=== PATIENT | female | born 1960 | race African-American/Black ===

== ENCOUNTER 2020-09-08 10:27 | Inpatient (IN) | payer OTHER, MEDICAID, SELFPAY ==
[~2020-09-08] VITALS: Ht 160 cm; Wt 36.3 kg
[2020-09-08 10:30] VITALS: BP 110/41
--- NOTE | 2020-09-08 10:40 | NUR ---
PATIENT AMBULATED TO ER BED 11
--- NOTE | 2020-09-08 10:47 | NUR ---
60/F non-ambulatory pt bib sister c/o pressure ulcer at coccyx x3 weeks. Pt's wound dressing was changed this morning at home by wound care nurse. Dressing c/d/i. Pt non-ambulatory since due to unspecified condition (sister does not remember name). Pt placed on bedside monitor, VSS. PMH:DM, HTN,HLD
[2020-09-08] MEDS ORDERED: NACL 0.9% 500 ML IV ONE ×2 (11:00→20:00)
[2020-09-08] MEDS ORDERED: VANCOMYCIN 1,000 MG VIAL ONE (11:34)
--- NOTE | 2020-09-08 11:34 | NUR ---
Unable to draw blood from IV site and health insurance specialist unable to obtain all lab ordered. operations accountant notified and will try.
[2020-09-08] MEDS ORDERED: VANCOMYCIN 1,000 MG in DEXTROSE 5% 250 ML IV ONE (11:35)
[2020-09-08] MEDS ORDERED: METF500T PO (11:40)
--- NOTE | 2020-09-08 11:45 | NUR ---
CATCHER HELPER AT BEDSIDE
[2020-09-08 11:56] LABS: EOSINOPHILS % (AUTO) 0.1 % (0.0-4.0); HEMATOCRIT 40.1 % (36-48); HEMOGLOBIN 12.9 g/dL (12.0-16.0); LYMPHOCYTES # (AUTO) 0.9 K/uL (2.5-16.5); LYMPHOCYTES % (AUTO) 8.7 % (20.5-51.1); MEAN CORPUSCULAR HEMOGLOBIN 29 pg (27-31); MEAN CORPUSCULAR HGB CONC 32 g/dL (33-37); MEAN CORPUSCULAR VOLUME 88.6 fL (80-94); MONOCYTES # (AUTO) 0.8 K/uL (0.8-1.0); MONOCYTES % (AUTO) 7.4 % (1.7-9.3); NEUTROPHILS % (AUTO) 83.8 % (42.2-75.2); PLATELET COUNT (AUTO) 254 K/uL (140-450); RED BLOOD CELL COUNT(AUTO) 4.52 MIL/uL (4.20-5.40); RED CELL DISTRIBUTION WIDTH 15.2 % (11.6-13.7); WHITE BLOOD COUNT (AUTO) 10.7 K/uL (4.8-10.8)
[2020-09-08 12:06] LABS: PROTHROMBIN TIME 10.2 secs (10.8-13.4)
--- NOTE | 2020-09-08 12:08 | NUR ---
URINE CATH SAMPLE AND COVID PALOMO SAMPLE DROPPED OFF AT LAB
[2020-09-08 12:09] LABS: ALBUMIN 2.2 g/dL (3.4-5.0); ANION GAP 11.8 (8-16); CARBON DIOXIDE 29.3 mmol/L (21-32); CREATININE 0.7 mg/dL (0.6-1.3); POTASSIUM 3.1 mmol/L (3.5-5.1); TOTAL BILIRUBIN 0.4 mg/dL (0.0-1.0)
--- NOTE | 2020-09-08 12:10 | NUR ---
NOTIFIED XRAY DEPT TO COME TAKE XRAY
--- NOTE | 2020-09-08 12:11 | NUR ---
DRY PRIMER POWDER BLENDER AT BEDSIDE
[2020-09-08 12:12] LABS: BILIRUBIN,URINE 1+ (NEGATIVE); COLOR,URINE YELLOW (YELLOW); LEUKOCYTE ESTERASE ,URINE 2+ (NEGATIVE); NITRITE, URINE NEGATIVE (NEGATIVE); UGLUCOSE NEGATIVE (NEGATIVE)
[2020-09-08 12:18] LABS: APPEARANCE,URINE HAZY (CLEAR)
[2020-09-08 12:19] LABS: WBC,URINE 20-60 /HPF (0-5)
[2020-09-08 12:20] LABS: YEAST,URINE Few /HPF (None Seen)
[2020-09-08 12:22] LABS: BLOOD, URINE 1+ (NEGATIVE)
[2020-09-08] MEDS ORDERED: LEVOFLOXACIN 500 MG/D5W PREMIX 100 ML IV ONE (12:30)
[2020-09-08] MEDS ORDERED: POTASSIUM CHLORIDE 20% 40 MEQ/15 ML UDC PO ONE (12:30)
--- NOTE | 2020-09-08 12:42 | NUR ---
HOB ELEVATED, PT WAS ABLE TO SWALLOW POTASSIUM LIQUID GIVEN PO BY SYRINGE WITHOUT DIFFICULTY/DYSPHAGIA.
--- NOTE | 2020-09-08 13:19 | NUR ---
PLEASE CONTACT SISTER [phone] FOR UPDATES.
--- NOTE | 2020-09-08 13:20 | NUR ---
SISTER ARIANE WEINBERG.
--- NOTE | 2020-09-08 14:00 | NUR ---
PT REPOSITIONED IN BED, PILLOW PLACED UNDER LEFT SIDE.
[2020-09-08] MEDS ORDERED: NACL 0.9% 1,000 ML IV SCH (14:30)
[2020-09-08] MEDS ORDERED: ONDANSETRON 4 MG/2 ML VIAL IM/IVP PRN (14:30)
[2020-09-08] MEDS ORDERED: POTASSIUM CHLORIDE 10 MEQ TABER PO PRN (14:30)
[2020-09-08] MEDS ORDERED: ACETAMINOPHEN 325 MG TAB PO PRN (14:30)
[2020-09-08] MEDS ORDERED: DOCUSATE SODIUM 100 MG GELCAP PO PRN (14:30)
[2020-09-08] MEDS ORDERED: PIPERACILLIN/TAZOBACTAM 3.375 GM in DEXTROSE 5% 50 ML IV SCH ×2 (14:43→17:20)
[2020-09-08 15:15] LABS: FREE T4 (FREE THYROXINE) 1.2 ng/dL (0.76-1.46); MAGNESIUM 2.4 mg/dL (1.8-2.4); PHOSPHORUS 2.6 mg/dL (2.5-4.9); THYROID STIMULATING HORMONE 1.92 uIU/mL (0.34-3.74)
[2020-09-08 15:17] LABS: CHOL/HDL RATIO 4.5 (1-4.5)
--- NOTE | 2020-09-08 15:30 | NUR ---
TYLENOL 650 MG ADMINISTER PRN TEMP 101.0
[2020-09-08 15:40] VITALS: BP 103/79
--- NOTE | 2020-09-08 15:40 | NUR ---
RECEIVED REPORT FROM ER NURSE MAYURI-SHANNON. PT RESTING IN BED, AOX2, ON ROOM AIR WITH RIGHT FA #[phone]. DISCUSSED PLAN OF CARE AND VERBALIZED UNDERSTANDING. INCONTINENT, WITH LEFT HIP CLOSED WOUND AND LEFT BUTTOCK OPEN WOUND. ORIENTED PT TO BEDROOM, CALL LIGHT. MRSA NARES COLLECTED. PT TOLERATED WELL. FALL PRECAUTIONS IN PLACE. CALL LIGHT WITHIN REACH. NO S/S OF RESPIRATORY DISTRESS OR DISCOMFORT NOTED AT THIS TIME. WILL CONTINUE TO MONITOR.
--- NOTE | 2020-09-08 15:40 | NUR ---
Patient will be admitted to care of DR. WARREN. Admited to MED SURG. Will go to room 126B. Belongings list completed. Report to LUISA ORTEGA.
[2020-09-08 16:00] VITALS: BP 108/63
--- NOTE | 2020-09-08 17:35 | NUR ---
SCHEDULED MEDICATION ZOSYN GIVEN AND TOLERATED WELL. CALL LIGHT WITHIN REACH. NO S/S OF RESPIRATORY DISTRESS OR DISCOMFORT NOTED AT THIS TIME. WILL CONTINUE TO MONITOR.
--- NOTE | 2020-09-08 17:51 | NUR ---
CRITICAL LAB VALUE LACTIC ACID 3.0- DR. WARREN CONTACTED AND AWARE.
--- NOTE | 2020-09-08 18:00 | NUR ---
DR. WARREN ORDERED 500ML BOLUS AND CONTINUE 60ML/HR NS IVF.
--- NOTE | 2020-09-08 19:00 | NUR ---
NS 500ML BOLUS GIVEN AND NS NOW RUNNING AT 60ML/HR. PT TOLERATED WELL. ENDORSED PT CARE TO SWEATER OPERATOR NURSE JANKI-SHANNON FOR CONTINUITY OF CARE. PT IN STABLE CONDITION AT THIS TIME.
[2020-09-08] MEDS ORDERED: DEXTROSE 50% 50 ML SYR IVP PRN (20:10)
[2020-09-08] MEDS: PIPERACILLIN/TAZOBACTAM 3.375 GM in DEXTROSE 5% 50 ML IV SCH (20:57)
[2020-09-08] MEDS: NACL 0.9% 1,000 ML IV SCH (21:00)
[2020-09-08] MEDS: INSULIN LISPRO SLIDING SCALE 100 UNITS/ML VIAL SUBQ PRN (21:00)
--- NOTE | 2020-09-08 21:00 | NUR ---
BS READING WAS TAKEN AND BS WAS 202. FOUR UNITS OF INSULIN HUMALOG WAS GIVEN PER SLIDING SCALE. PT WAS GIVEN PT INFORMATION REGARDING MEDICATION AND SIGNS AND SYMPTOMS OF HYPOGLYCEMIA. PT VERBALIZED UNDERSTANDING.
[2020-09-08] MEDS: BLOOD GLUCOSE MONITORING 1 DEV DEV FS SCH (21:03)
--- NOTE | 2020-09-08 21:30 | NUR ---
PT WAS CHANGED AND REPOSITIONED PER PROTOCOL. NO DISTRESS NOTED DURING CHANGING, SHE HANDLED THE PROCEDURE WELL. PT IS STABLE AT THIS TIME. DRY CHUCKS ARE IN PLACE. DRESSINGS ARE DRY AND INTACT.
--- NOTE | 2020-09-08 23:00 | NUR ---
PT WAS REPOSITIONED PER PROTOCOL. WEDGE WAS PLACED UNDERNEATH RIGHT SIDE TO OFFSET THE PRESSURE ON THE BACK. WOUND DRESSING IS DRY AND INTACT. CHUCKS ARE DRY AND IN PLACE. PT IS STABLE.
[2020-09-09] VITALS: BP 122/77
--- NOTE | 2020-09-09 01:00 | NUR ---
PT'S WOUND'S WERE ASSESSED. MODERATE DRAINAGE WAS COMING FROM LEFT BUTTOCKS WOUND. NO DRAINAGE CAME FROM LEFT HIP. FOUL ODOR FROM BOTH WOUNDS. CLEANSED WITH NS AND PATTED DRY. NEW DRESSING WAS APPLIED. PT WAS REPOSITIONED.
[2020-09-09] MEDS: NACL 0.9% 1,000 ML IV SCH (01:41)
--- NOTE | 2020-09-09 03:00 | NUR ---
IV IS INFUSING AND PATENT. PT IS EASILY AWOKEN BY NOISE. PT HAS GOTTEN SOME SLEEP ON AND OFF THROUGH THE NIGHT. PT HAS BEEN NPO PER ORDER CHANGE. SOILED LINENS WERE CHANGED AND PT WAS REPOSITIONED. BED IS IN THE LOWEST POSITION AND CALL LIGHT IS WITHIN REACH.
[2020-09-09] MEDS: PIPERACILLIN/TAZOBACTAM 3.375 GM in DEXTROSE 5% 50 ML IV SCH ×3 (04:51→22:00)
--- NOTE | 2020-09-09 05:00 | NUR ---
PT IS REPOSITIONED TO OFFSET THE PRESSURE ON THE BACK AND THE WOUNDS. DRESSING FOR WOUNDS ARE DRY AND INTACT. PT'S LINENS ARE DRY. LOTION WAS APPLIED TO DRY FEET. PILLOW WAS PLACED IN BETWEEN KNEES AND ON ONE SIDE OF BACK.
[2020-09-09 05:31] LABS: BASOPHILS % (AUTO) 0.2 % (0.0-2.0); EOSINOPHILS % (AUTO) 0.2 % (0.0-4.0); HEMATOCRIT 30.6 % (36-48); HEMOGLOBIN 10.1 g/dL (12.0-16.0); LYMPHOCYTES # (AUTO) 1.1 K/uL (2.5-16.5); LYMPHOCYTES % (AUTO) 11.3 % (20.5-51.1); MEAN CORPUSCULAR HEMOGLOBIN 29 pg (27-31); MEAN CORPUSCULAR HGB CONC 33 g/dL (33-37); MEAN CORPUSCULAR VOLUME 86.6 fL (80-94); MONOCYTES # (AUTO) 0.8 K/uL (0.8-1.0); NEUTROPHILS % (AUTO) 80.3 % (42.2-75.2); PLATELET COUNT (AUTO) 246 K/uL (140-450); RED BLOOD CELL COUNT(AUTO) 3.53 MIL/uL (4.20-5.40); RED CELL DISTRIBUTION WIDTH 14.6 % (11.6-13.7); WHITE BLOOD COUNT (AUTO) 9.9 K/uL (4.8-10.8)
[2020-09-09 05:40] LABS: CARBON DIOXIDE 25.3 mmol/L (21-32); CREATININE 0.5 mg/dL (0.6-1.3); POTASSIUM 3.3 mmol/L (3.5-5.1)
[2020-09-09 05:47] LABS: MAGNESIUM 1.9 mg/dL (1.8-2.4); PHOSPHORUS 1.5 mg/dL (2.5-4.9)
--- NOTE | 2020-09-09 06:01 | NUR ---
BS READING WAS TAKEN AND BS IS 114. PT DOES NOT NEED INSULIN AT THIS TIME PER SLIDING SCALE. PT IS STABLE AND SLEEPING COMFORTABLY IN SEMI FOWLERS POSITION. NEEDS HAVE BEEN MET. WHEELCHAIR IS AT BEDSIDE.
[2020-09-09] MEDS: BLOOD GLUCOSE MONITORING 1 DEV DEV FS SCH ×4 (06:35→21:00)
--- NOTE | 2020-09-09 07:25 | NUR ---
ENDORSED PT TO DAY SHIFT NURSE FOR CONTINUITY OF CARE. PT IS AWAKE AND ALERT. PT IS STABLE AT THIS TIME. PLAN OF CARE DISCUSSED. WHEELCHAIR IS AT BEDSIDE.
--- NOTE | 2020-09-09 07:30 | NUR ---
RECEIVED PT FROM REGISTERED NURSE MIDWIFE NURSE, PT IS AWAKE AND LYING ON THE BED WITH SIDE RAILS UP AND CALL LIGHT WITHIN REACH, FALL AND SAFETY PRECAUTION WERE IN PLACE, IV LINE NOTED ON THE RFA G. 22 WITH NS INFUSING AT 60ML/GR, PT HAS A RT BUTTOCK OPEN WOUND REINFORCED BY DRESSING, PT IS ON ROOM AIR AND NO SIGN OF DISTRESS NOTED. WILL MONITOR PT.
--- NOTE | 2020-09-09 07:31 | NUR ---
PT WAS PLACED NPO PENDING SURGERY CONSULT WITH DR. MALAGON.
[2020-09-09 08:00] VITALS: BP 117/68
[2020-09-09 08:09] LABS: T4 (THYROXINE) 6.6 ug/dL (4.5-12.0)
--- NOTE | 2020-09-09 08:39 | NUR ---
PATIENT HAS BEEN SCREENED AND CATEGORIZED HIGH NUTRITION RISK. PATIENT WILL BE SEEN WITHIN 1-2 DAYS OF ADMISSION. 09/09/20-09/10/[address]
--- NOTE | 2020-09-09 08:47 | NUR ---
CALLED PT'S SISTER, SIXTO KAISER AT [phone] AND OBTAINED A TELEPHONE CONSENT FRO A NM TRI PHASE BONE SCAN FOR PT.
[2020-09-09] MEDS ORDERED: metFORMIN 500 MG TAB PO SCH (09:00)
--- NOTE | 2020-09-09 09:00 | NUR ---
PT WAS OFF THE UNIT NOW FOR THE SECOND PHASE IOF THE NM TRI PHASE BONE SCAN.
--- NOTE | 2020-09-09 09:25 | NUR ---
SOCIAL WORK NOTE: Patient's Orientation Unable To Assess Information Provided By ZARI MENDOZA - SISTER Comments SW WAS UNABLE TO MEET PATIENT AT BEDSIDE. SW ATTEMPTED TO CONTACT ARIANE WEINBERG, BUT MAILBOX WAS FULL AND WAS UNABLE TO LEAVE A MESSAGE. SW CONTACTED SHANNON ROBLES WHO PROVIDED SISTER ZARI MENDOZA'S CONTACT INFORMATION - [phone]. Infant And Toddler Teacher, Realtionship and Phone Number ARIANE ZAMORA [phone] ZARI ZAMORA [phone] Healthcare Power of Biomedical Engineering Aide No Does Patient Have a POLST No Identifying Problems No Social Work Triggers Is A Social Work Consult Needed No Mandate Report Filed No Explanation Of Identifying Problems PATIENT IS A 60-YEAR-OLD FEMALE ADMITTED FOR CELLULITIS AND WOULD CHECK. PATIENT HAS PMHX OF CEREBRAL PALSY. PATIENT'S SISTER REPORTED NO HISTORY OF SUBSTANCE ABUSE OR MENTAL HEALTH. Admitted From Home Pre-Admission Level Of Functioning Status Total Care Level Of Functioning Comment PER SISTER, PATIENT REQUIRES TOTAL ASSISTANCE WITH ADLS. Prior Resources/Services Used In Last 12 Months [facility] Prior Resources/Service Comments PATIENT RECEIVES 169 HOURS MONTHLY FROM [facility]. Prior DME Hospital Bed Wheelchair Dialysis Comments SISTER REPORTED NO DIALYSIS FOR PATIENT. Living Situation Lives With Family House Other Living Situation/Comment PATIENT LIVES WITH SISTERARIANE. Patient Had Caregiver Yes Name and Contact Number Of Designated Caregiver ARIANE WEINBERG - [phone] Home Support CG/Fam Able To Meet Need Financial Issues No Known Financial Issue Referral To The Financial Counselor Needed No Factors/Needs No D/C Needs Identified Explanation And Or Other Factors Affecting/Possible DC Needs ARIANE WEINBERG WILL PICK PATIENT UP AT DISCHARGE. Pt/Rep Participated In Discharge Plan Yes Patient/Family Agress With Discharge Plan Yes Discharge Plan Comments TENTATIVE DISCHARGE PLAN IS FOR PATIENT TO RETURN HOME. DC Plan Status Initiated Addendum: 09/14/20 at 1039 by Mario Malave STANLEY CONSULTED WITH ATTENDANT CHILD ACTIVITY. STANLEY FILED APS REPORT WITH [facility] FOR POSSIBLE NEGLECT BY ARIANE WEINBERG AND SHRUTHI KAISER. STANLEY SPOKE WITH ELISHA DAMIAN [phone]. APS REPORT REFERENCE #[id number]. STANLEY FAXED APS REPORT TO [phone]. Addendum: 09/16/20 at 1130 by Mario Malave STANLEY CONTACTED [facility] APS [phone] AND SPOKE TO TUNDE. STANLEY UPDATED APS REPORT AND INFORMED APS THAT PATIENT WILL BE DISCHARGED TO [facility]. REFERENCE #[id number]
--- NOTE | 2020-09-09 09:57 | NUR ---
PT WAS BACK TO ROOM NOW FROM NM TRI PHASE BONE SCAN.
--- NOTE | 2020-09-09 11:26 | NUR ---
DR. WHITFIELD MADE A TELEPHONE ORDER TO START PT WITH IVF D5NS AT 60ML/HR NOW.
[2020-09-09] MEDS: DEXT 5% /NACL 0.9% 1,000 ML IV SCH (11:38)
--- NOTE | 2020-09-09 11:45 | NUR ---
DISCHARGE PLANNING: RECEIVED A CALL FROM SOIL[facility] OF [facility] [phone], FAX NUMBER [phone] REQUESTING UPDATE ON THIS PATIENT. PROVIDED HER OF ALL INFORMATION NEEDED. SHE REQUESTED FOR CLINICALS TO BE FAXED TO THEM. I INQUIRED IF THE PATIENT IS REQUIRING SNF IF SHE PROVIDE US WITH THEIR CONTRACTED SNF AND TRANSPORT. SHE STATED THEY ARE CONTRACTED WITH [facility], [facility], [facility] AND [facility]. FOR TRANSPORT [facility] [phone] AND [facility] [phone]. I ALSO REQUESTED FOR THE AUTH. SHE PROVIDED ME WITH [id number]. WILL FOLLOW UP. Addendum: 09/09/20 at 1154 by Charline Hammer CM CHRISTOS WATER QUALITY TESTER: FAXED PATIENTS CLINICALS TO [facility] ATTENTION TO SOILA. Addendum: 09/10/20 at 1347 by Mario Malave STANLEY CONTACTED SISTER OF PATIENT, ZARI MENDOZA REGARDING DISCHARGE PLAN. ZARI STATED THAT SHE WAS POA FOR PATIENT. STANLEY REQUESTED DOCUMENTATION BE FAXED TO CASE MANAGEMENT. ZARI STATED THAT SHE AND HER FAMILY ARE DECLINING HOSPICE. ZARI STATED THAT SHE WILL MAKE ARRANGEMENTS REGARDING CARE FOR SISTER HERSELF. STANLEY WILL FOLLOW UP NEEDED. STANLEY INFORMED DR. WHITFIELD. Addendum: 09/10/20 at 1417 by Cornelia Malik CM LELE CM OF [facility] HEALTH PLAN [phone] UPDATED OF THE PATIENT'S CONDITION AND TENTATIVE PLAN TO DC TO SNF FOR IV ANTIBIOTICS FOR OSTEO PENDING ID'S RECOMMENDATIONS. I ALSO INQUIRED IF THE AUTH THAT SHE PROVIDED ME YESTERDAY, WILL COVER THE ENTIRE STAY. PER LELE CM STATED "YES, WILL COVER THE ENTIRE STAY." SHE PROVIDED ME WITH WEEKEND COVERAGE FOR [facility] [phone] AND FOR SUNDAY LACI [phone] AND FAX NUMBER FOR THE WEEKEND WILL BE [phone]. SHE ALSO MENTIONED THAT PATIENT'S PCP ORDERED HOSPICE FOR THIS PATIENT. STANLEY AYALA MADE AWARE. PER STANLEY AYALA HE SPOKE TO THE FAMILY AND THEY DECLINE HOSPICE. WILL FOLLOW UP. Addendum: 09/13/20 at 1135 by Erika Disla CM DC PLANNING: CALLED PT'S INSURANCE [facility] [phone] SPOKE WITH LELE CM NOTIFIED HER PT HAS A DC ORDER TO GO HOME WITH [facility] FOR IV ABX. PER SOILA PT WAS WITH [facility] AND [facility] IS CONTRACTED WITH THEM. CALLED [facility] SPOKE WITH THE INTAKE STATED IF FAMILY ARE NOT TEACHABLE SHE DOES NOT HAVE A NURSE FOR Q12 HR. CALLED PT'S SISTER SHRUTHI AT [phone] LEFT A MESSAGE. CALLED [facility] SPOKE WITH DENZEL FAXED ALL THE PAPERWORK , PER DENZEL WILL CALL BACK AFTER SHE REVIEWED AND SPEAK WITH THE FAMILY AND INSURANCE. CM TO FOLLOW. Addendum: 09/13/20 at 1439 by Erika Disla CM DC PLANNING: CALLED [facility] [phone] SPOKE WITH STEPHANIE VILLARREAL AND [facility] WILL PROVIDE MEDICATION DAPTOMYCIN 6-10MG /KG IV DAILY FOR 6 WEEKS AND REQUESTED THE FIRST DOSE TO BE GIVEN. PT IS READY TO BE DC ONCE PICC LINE IS INSERTED AND RECEIVED 1ST DOSE OF DAPTOMYCIN. CM TO FOLLOW Addendum: 09/13/20 at 1617 by Mario GUILLERMO STANLEY CONTACTED [facility] AND SPOKE TO DENZEL [phone]. STANLEY INFORMED DENZEL THAT PATIENT WILL STAY OVERNIGHT. [facility]ZEL STATED SHE WOULD FOLLOW UP WITH PATIENT TOMORROW. Addendum: 09/14/20 at 1112 by Cornelia Malik CM [facility] UPDATED OF THE PATIENT'S CONDITION AND DC PLAN TO SNF FOR IV ANTIBIOTICS. PER CM MIRACLE, SHE WILL FAX ME OVER MORE SNF LIST IF IN ANY CASE THE 4 MENTIONED PREVIOUSLY WILL NOT BE ABLE TO ACCEPT THE PATIENT. Addendum: 09/14/20 at 1114 by Charline Hammer CM DC WATER QUALITY TESTER: FAXED PATIENT CLINICALS TO CONTRACTED FACILITIES [facility], [facility], AND [facility]. Addendum: 09/14/20 at 1117 by Cornelia Malik CM CONTACTED PATIENT'S SISTER SHRUTHI AT [phone] TO DISCUSS DC PLAN TO SNF AND IS IN AGREEMENT. INFORMED HER THAT WE SENT THAT WE SENT THE INQUIRY TO [facility], [facility] AND [facility]. SHE STATED SHE PREFERS [facility] IF BED IS AVAILABLE. INFORMED HER THAT WE WILL UPDATE HER OF THE ACCEPTING FACILITY. Addendum: 09/14/20 at 1303 by Charline Hammer CM DC WATER QUALITY TESTER: RECEIVED ORDER TO DC PATIENT ON 09/17 TO SNF WITH IV ABX. FAXED ORDER TO [facility]. Addendum: 09/14/20 at 1305 by Charline Hammer CM DC WATER QUALITY TESTER: SPOKE TO TYLER AT [facility] SHE IS REVIEWING THE CLINICS AND WILL CONTACT ME BACK. SHE BELIEVES THEY WILL BE ABLE TO ACCEPT THIS PATIENT. WILL FOLLOW UP. Addendum: 09/15/20 at 1101 by Charline Hammer CM DC WATER QUALITY TESTER: RECEIVED A CALL FROM SKYLA AT [facility] THEY ARE ABLE TO ACCEPT THIS PATIENT IN ROOM 3A. SPOKE TO PATIENTS SISTER SIXTO REGARDING ACCEPTING SNF SHE IS OKAY WITH HER SISTER GOING TO [facility]. Addendum: 09/15/20 at 1104 by Charline Hammer CM CHRISTOS BERNAL: DR. WHITFIELD MADE AWARE OF ACCEPTING FACILITY. Addendum: 09/15/20 at 1120 by Cornelia Malik CM PER DR WHITFIELD, WILL DC PATIENT TOMORROW. Addendum: 09/15/20 at 1301 by Cornelia Malik CM [facility] UPDATED OF THE PATIENT'S CONDITION. I INFORMED HER WELL THAT WE HAVE AN ACCEPTING SNF WHICH IS [facility]. SHE STATED THAT SHE PROVIDED THEM WITH AUTH ALREADY. INFORMED HER THAT TENTATIVE DC PLAN TO SNF IS TOMORROW AND SOON WE GET THE ORDER WE'LL SEND IT OVER. Addendum: 09/16/20 at 0938 by Charline Hammer DC WATER QUALITY TESTER: PATIENT WILL DC TODAY TO [facility] ROOM [address]A UNDER DR[address] MAHARAJ. SPOKE TO PATIENTS SISTER ZARI TO NOTIFY HER THAT PATIENT WILL BE DISCHARGING TODAY. [place] [phone] [facility] [id number] Addendum: 09/16/20 at 0939 by Charline Hammer CM CHRISTOS BERNAL: ANNE MARIE CRUM AT [facility] THEY ARE ABLE TO COVER TRANSPORTATION FOR PATIENT. Addendum: 09/16/20 at 940 by Charline Hammer CM CHRISTOS BERNAL: CORRECTION PATIENT WILL NOW BE GOING TO ROOM 5-B Addendum: 09/16/20 at 1040 by Charline Hammer CM CHRISTOS BERNAL: CONTACTED [facility] TO SET UP [facility] [phone]. ETA IS 1:30PM-2:30 PM NOTIFIED RN Addendum: 09/16/20 at 1256 by Erika Disla CM DC PLANNING: RECEIVED A CALL FROM [facility] PLAN SPOKE WITH SOILA NOTIFIED HER PT IS GOING TO [facility] , EQUAL OPPORTUNITY SPECIALIST TIME BETWEEN 1:30 TO 2:30 WITH [employer].
--- NOTE | 2020-09-09 12:36 | NUR ---
PT WAS GIVEN IVPB ZOSYN NOW, NO SIGN OF DISTRESS NOTED AND WILL MONITOR PT.
--- NOTE | 2020-09-09 13:45 | NUR ---
09/09/20 RD INITIAL ASSESSMENT COMPLETED PLEASE REFER TO NUTRITION ASSESSMENT UNDER CARE ACTIVITY FOR ESTIMATED NUTRITIONAL NEEDS. 1. RECOMMEND SWALLOWING EVALUATION FOR APPROPRIATE FOOD TEXTURE AND LIQUID CONSISTENCY RECOMMENDATIONS 2. RECOMMEND VITAMIN C 500 MG BID AND ZINC 220 MG IF APPROPRIATE 3. RECOMMEND LUCRECIA BID AND ENSURE TID 4. PROVIDE ASSISTANCE WITH MEALS 5. RD TO FOLLOW-UP 2-3 DAYS, HIGH RISK ORI JACKSON, RD
--- NOTE | 2020-09-09 14:00 | NUR ---
WOUND ASSESSMENT WAS DONE, WOUND WAS CLEANED AND REINFORCED WITH DRESSING.
[2020-09-09] MEDS ORDERED: NACL 0.9% 1,000 ML IV SCH (14:30)
--- NOTE | 2020-09-09 15:49 | NUR ---
PT IS OFF THE UNIT FOR A THIRD PHASE OF THE TRI PHASE BONE SCAN.
[2020-09-09 16:00] VITALS: BP 134/79
--- NOTE | 2020-09-09 17:00 | NUR ---
PT IS BACK TO ROOM FROM NM TRI PHASE BONE SCAN, THIRD PHASE.
--- NOTE | 2020-09-09 17:20 | NUR ---
BLOOD GLUCOSE CHECK DONE AND IS 77, WILL MONITOR PT.
--- NOTE | 2020-09-09 18:15 | NUR ---
PT WAS TURNED AND REPOSITIONED.
--- NOTE | 2020-09-09 19:20 | NUR ---
ENDORSED PT TO SEASONAL PACKAGE HANDLER NURSEMAXINE FOR CONTINUITY OF CARE.
--- NOTE | 2020-09-09 19:20 | NUR ---
RECEIVED PT. AAOX 1 TO 2 - NID - O2 SAT WNL . IV SITE INTACT AND PATENT , LOW RENAY SCALE , W/DECUBITUS ULCERS ON R BUTT AND L HIP - SEEN BY DR. MALAGON WHILE AGO - FOR DEBRIBEMENT CHARLES . - BUT NO TIME YET . FALL RISK - BED ALARM ON . PLAN OF CARE DISCUSSED BUT LIMITED UNDERSTANDING DUE TO MENTAL CAPACITY - HX OF CEREBRAL PALSY . DENIES ANY PAIN . NPO . WILL CONT. TO MONITOR .
--- NOTE | 2020-09-09 20:00 | NUR ---
I TRIED TO GET TEL. CONSENT FOR DEBRIBEMENT FROM PT'S SISTER - BUT PER PT'S SISTER REQUEST SHE WANTS AN EXPLANATION FROM DR. MALAGON BEFORE TO GIVE THE TEL CONSENT - WILL INFORM DR. MALAGON.
--- NOTE | 2020-09-09 20:20 | NUR ---
SENT TEXT MESSAGE TO DR. MALAGON ABOUT PT'S SISTER REQUEST - NO RESPONSE FROM DR. MALAGON - I SENT DR. MALAGON THE PT'S NAME OF THE SISTER AND THE CONTACT NUMBERS - NO FINAL TIME YET WHEN THE PROCEDURE TO BE DONE .
--- NOTE | 2020-09-09 22:00 | NUR ---
NO COPMPLAIN MADE - WILL CONT. TO MONITOR
[2020-09-10] VITALS: BP 122/62
--- NOTE | 2020-09-10 | NUR ---
MADE ROUNDS , NO S/SX OF ACUTE DISTRESS NOTED . WILL CONT. TO MONITOR .
--- NOTE | 2020-09-10 04:00 | NUR ---
MADE ROUNDS , NO S/SX OF ACUTE DISTRESS NOTED . CALL LIGHT WITHIN REACH . FF UP FOR EKG.
[2020-09-10] MEDS: PIPERACILLIN/TAZOBACTAM 3.375 GM in DEXTROSE 5% 50 ML IV SCH ×3 (04:51→21:32)
[2020-09-10] MEDS: BLOOD GLUCOSE MONITORING 1 DEV DEV FS SCH ×4 (05:54→21:02)
--- NOTE | 2020-09-10 06:00 | NUR ---
MADE ROUNDS . NO S/SX OF ACUTE DISTRESS NOTED . DENIES PAION . WILL CONT. TO MONITOR .
[2020-09-10] MEDS: DEXT 5% /NACL 0.9% 1,000 ML IV SCH ×2 (06:24→21:32)
--- NOTE | 2020-09-10 07:20 | NUR ---
RECEIVED REPORT FROM MANUFACTURING ELECTRICIAN RN PT IS STABLE. LAYING IN BED.
--- NOTE | 2020-09-10 07:20 | NUR ---
ENDORSED TO AM SHIFT - PT - STABLE - GOT CONSENT FOR DEDRIBEMENT FROM SISTER ZARI - DR. MALAGON INFORMED .
[2020-09-10 08:00] VITALS: BP 103/58
--- NOTE | 2020-09-10 08:40 | NUR ---
PT IS AWAKE AND ORIENTED X 1/2 KNOW HER NAME AND THAT SHE IS IN HOSPITAL. PT BEDBOUND V/S: 97.8, 88, 16, 103/58, 100% RA. LUNG SOUNDS CLEAR, ABD IS FLAT SOFT AND NON-TENDER. ACTIVE BS X 4. SAFETY MEASURES IN PLACE. HAS IV ACCESS TO RIGHT FOREARM THAT IS INTACT AND PATENT. WOUND NURSE ASSESSING PT WILL CONTINUE WITH POC.
--- NOTE | 2020-09-10 09:16 | NUR ---
WOUND CARE EVALUATION NOTE: REASON FOR EVALUATION: LOW RENAY SCALE AND BUTTOCK WOUNDS SKIN ASSESSMENT DONE WITH THIS 60 Y/O MALE PT ADMITTED TO [facility] WITH INITIAL DX . BUTTOCK WOUND X3 WEEKS PAST MEDICAL HX INCLUDES CEREBRAL PALSY, DIABETES MELLITUS. ALL ABOVE INFORMATION OBTAINED FROM ADMISSION H&P. PT ADMITTED WITH MULTIPLE PRESSURE INJURIES. BMI 15.8, H/H 10.1/30.6, ALBUMIN 2.2. PT EYES OPEN, NON-VERBAL, MADE SOUNDS. SKIN IS COLD AND DRY, BLE HAIR NO GROWTH, NO EDEMA. DRY AND SCALY, DORSAL PEDAL PULSES PRESENT AND NORMAL. CAPILLARY REFILLED < 2 SEC. X 10 TOES. INCONTINENT OF BOWEL AND BLADDER. PLAN OF CARE DISCUSSED WITH PRIMARY RN. INTEGUMENTARY: -LIPS AND ORAL MEMBRANE ARE DRY AND INTACT -UPPER ARMS MULTIPLE ECCHYMOSIS/MULTIPLE PURPLE DISCOLORATION POSSIBLE FROM BLOOD DRAW -INCONTINENT ASSOCIATE DERMATITIS (IAD) TO: B/L GROINS, INNER THIGH AND POSTERIOR THIGH TO SCROTAL, SKIN REDNESS, PEELING -LEFT TROCHANTER PRESSURE ULCER INJURY UN-STAGEABLE, 2X2CM, WOUND BED 100% BROWN AND YELLOW SLOUGH, DRY NO DRAINAGE, AMERICO-WOUND SKIN SURROUNDING REDNESS INDICATED FURTHER DAMAGE -SACRUM EXTENDED TO LEFT BUTTOCK PRESSURE ULCER INJURY STAGE 4, 5X4X1.5CM UNDERMINING AROUND THE CLOCK WITH DEEPEST TO 12 OCLOCK 0.8CM WOUND BED IS 80% GRANULATING TISSUE, 20% BROWN INFECTED SLOUGH, LARGE AMOUNT PURULENT DRAINAGE AND FOUL ODOR, AMERICO WOUND PEELING SKIN, SURROUNDING REDNESS INDICATED FURTHER DAMAGE -LEFT FIRST DISTAL PHALANGES DIABETIC ULCER BROWN STABLE SCAB 0.5X0.5CM AREA DRY AND CLEAN -LEFT MEDIAL HEEL PRESSURE INJURY STAGE 1 2X1CM -RIGHT FIRST METATARSAL DIABETIC ULCER BROWN STABLE SCAB 1X1CM AREA DRY AND CLEAN RECOMMENDATIONS: -PROVIDE GOOD ORAL CARE Q SHIFT AND PRN -APPLY HYDRAGUARD TO BLE AND DORSAL FEET BID AND LOLA -PAINT WITH BETADINE SOLUTION TO LEFT -LEFT FIRST DISTAL PHALANGES AND RIGHT FIRST METATARSAL BID AND LEAVE IT DIMENSIONAL INTEGRATION ENGINEER - CLEANSE SACRUM /LEFT BUTTOCK WITH WOUND CLEANSING SOLUTION AND APPLY SILVER ALGINATE COVER WITH COMPOSITE DRESSING QD AND PRN IF SOILING -APPLY FORM DRESSING TO LEFT HEEL CHANGE Q3 DAYS AND PRN IF SOILING -APPLY HEEL PROTECTORS TO BOTH HEELS AT ALL TIMES -OFFLOAD BILATERAL HEELS BY PLACING PILLOWS UNDER CALVES UNLESS OTHERWISE CONTRAINDICATED -PRESSURE REDISTRIBUTION SURFACE THERAPY -TURN AND REPOSITION Q2H, OFFLOAD SACRALCOCCYX AND BUTTOCKS BY TURNING RIGHT AND LEFT -CONTINUE TO FOLLOW RD RECOMMENDATIONS ALL ABOVE RECOMMENDATIONS DISCUSSED WITH PRIMARY RN. PLEASE CONTACT WOUND CARE NURSE FOR ANY QUESTION AND CHANGE OF WOUND CONDITION Addendum: 09/10/20 at 1026 by Everett Pierce RN (Grace) PER PRIMARY RN PT. PENDING FOR WOUND DEBRIDEMENT. Addendum: 09/10/20 at 1028 by Everett Pierce RN (Grace) INCORRECT DATE.-INCONTINENT ASSOCIATE DERMATITIS (IAD) TO: B/L GROINS, INNER THIGH AND POSTERIOR THIGH TO SCROTAL, SKIN REDNESS, PEELING. PT/ PERINEUM DRY AND CLEAN NO REDNESS, SKIN INTACT. Addendum: 09/10/20 at 1035 by Everett Pierce RN (Grace) WOUND CARE RECOMMENDATIONS: -PENDING WOUND DEBRIDEMENT FROM SURGEON -PROVIDE GOOD ORAL CARE Q SHIFT AND PRN -APPLY HYDRAGUARD TO BLE AND DORSAL FEET BID AND LOLA -PAINT WITH BETADINE SOLUTION TO LEFT TROCHANDER, LEFT FIRST DISTAL PHALANGES AND RIGHT FIRST METATARSAL BID AND LEAVE IT LOLA - CLEANSE SACRUM /LEFT BUTTOCK WITH WOUND CLEANSING SOLUTION AND APPLY SILVER ALGINATE COVER WITH COMPOSITE DRESSING QD AND PRN IF SOILING -APPLY FORM DRESSING TO LEFT MEDIAL HEEL CHANGE Q3 DAYS AND PRN IF SOILING -APPLY HEEL PROTECTORS TO BOTH HEELS AT ALL TIMES -OFFLOAD BILATERAL HEELS BY PLACING PILLOWS UNDER CALVES UNLESS OTHERWISE CONTRAINDICATED -PRESSURE REDISTRIBUTION SURFACE THERAPY -TURN AND REPOSITION Q2H, OFFLOAD SACRALCOCCYX AND BUTTOCKS BY TURNING RIGHT AND LEFT -CONTINUE TO FOLLOW RD RECOMMENDATIONS Addendum: 09/10/20 at 1141 by Everett Pierce RN (Grace) 60 Y/O FEMALE PT. -LEFT MEDIAL KNEE PRESSURE INJURY STAGE 2, 3X1X0.1CM WOUND BED IS 100% GRANULATING TISSUE, MOIST, NO ODOR, AMERICO WOUND SKIN INTACT, OLD HEALED SURGICAL SCARS. -RIGHT MEDIAL KNEE DARKER BROWN HYPERPIGMENTATION 2X2 CM SKIN IS WARM INTACT RECOMMENDATIONS: -CLEANSE LEFT MEDIAL KNEE WITH WOUND CLEANSING SOLUTION AND APPLY ADAPTIC DRESSING COVER WITH DRY DRESSING QD AND PRN IF SOILING -RIGHT MEDIAL KNEE APPLY HYDRAGUARD BID AND OFFLOADING
--- NOTE | 2020-09-10 10:30 | NUR ---
PT SEEN BY WOUND CARE NURSE, SPEECH THERAPIST AND FNS RECOMMENDATIONS MADE. FOR PUREE DIET WITH THIN LIQUIDS AND SUPPLEMENT LUCRECIA BID AND ENSURE TID. PT REMAINS NPO WILL NOTIFY MD AND ACQUIRE WHEN DEBRIDEMENT WILL OCCUR WILL SUBMIT ORDERS AFTER DEBRIDEMENT IS COMPLETE.
--- NOTE | 2020-09-10 10:30 | NUR ---
*ST Notes* [id number] Order received, chart reviewed. Pt presently NPO, awaiting debridement. Phone call to pt's DPOA and sister, Ivon, done with sister reporting that pt used to eat regular diet without any allergies, particularly liking apple sauce. Pt's DPOA reported that pt lives with other sister, Ella, who may provide a better report. PERSONAL FIN[employer]CIAL PLANNER to f/u when cleared by MD for PO trials. Plan d/w pt's [place] [facility]. -Bertha Fong MA, CCC-PERSONAL FINANCIAL PLANNER
--- NOTE | 2020-09-10 10:36 | NUR ---
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 Work-up noted cellulitis c decubitus ulcer R buttock, UTI. PMHx cerebral palsy, DM. CXR 09/08 (-). Cleared with RN, Nkechi, for BDSE after obtaining clearance from MD for PO's prior to wound debridement. Pt seen bedside, alert, on room air, cachetic, verbalized wants/needs in soft but clear vocal quality. Pt willing to participate in PO's given and required some assistance in feeding. Per phone call to pt's caregiver sister, Ella, pt used to eat Ground/Thin Liquids by herself prior to her OSH admit but has since deconditioned these past 3-4 weeks, eating oatmeal and apple sauce only with feed-assist. ~2.5oz apple juice, ~2oz apple sauce, ~3oz canned MS pears, and 2x saltine crackers given. Pt benefitted from feeding assistance by ACADEMY EDUCATION DIRECTOR. Pt had fair sequential straw sip thin, some tongue thrust during swallow, some atypical rotary mastication pattern with pears and crackers, fair clearing, slight delay swallow trigger, fair laryngeal excursion, no overt coughing nor throat clearing. Vocal quality remained clear, dry post PO's given. POC, diet recommendations, and safe swallow strategies reviewed with pt, pt's sister, and RN. P: Rec Puree/Thin with advancement to Ground/Thin when pt demonstrates fair PO intake with feeding assistance Follow safe swallow strategies, oral care, aspiration precautions Nsg to monitor and notify ACADEMY EDUCATION DIRECTOR of changes in status -Bertha Fong MA, [facility]-ACADEMY EDUCATION DIRECTOR Addendum: 09/10/20 at 1037 by [facility] Amended: Links added.
--- NOTE | 2020-09-10 12:20 | NUR ---
PT REMAIN NPO AWAITING DEBRIDEMENT V/S: 97.2, 88, 18, 105/56, 100% RA PAIN 0/10. PT TURNED PROVISION OF CARE PROVIDED.
[2020-09-10] MEDS: GAUZE TP SCH ×2 (13:00)
[2020-09-10] MEDS: ALGINATE DRESSING MC SCH (13:00)
[2020-09-10] MEDS: HYDRAGUARD CREAM TP SCH (13:00)
[2020-09-10 13:34] LABS: ANION GAP 14.3 (8-16); CARBON DIOXIDE 24.3 mmol/L (21-32); CREATININE 0.6 mg/dL (0.6-1.3)
[2020-09-10 14:02] LABS: POTASSIUM 2.6 mmol/L (3.5-5.1)
[2020-09-10] MEDS ORDERED: LIDOCAINE MPF 1% 5 ML ONE (14:24)
[2020-09-10] MEDS ORDERED: POTASSIUM CHLORIDE 40 MEQ, LIDOCAINE MPF 1% 25 MG in NACL 0.9% 250 ML IV SCH (14:30)
[2020-09-10] MEDS ORDERED: LIDOCAINE MPF 1% 10 MG/ML VIAL INJ ONE (14:30)
[2020-09-10] MEDS ORDERED: LIDOCAINE MPF 1% 10 MG/ML VIAL INJ SCH (14:35)
--- NOTE | 2020-09-10 14:40 | NUR ---
WOUND DEBRIDEMENT DONE AT BEDSIDE. PT TOLERATED PROCEDURE WELL. WOUND DRESSING APPLIED. IN NO DISTRESS.
[2020-09-10 16:00] VITALS: BP 109/64
[2020-09-10] MEDS ORDERED: VANCOMYCIN PER PHARMACY MC PRN (16:40)
--- NOTE | 2020-09-10 16:50 | NUR ---
PT RESTING IN BED DIET ADVANCED TO PUREE WITH SUPPLEMENTS V/S: 98.7, 91, 16, 109/64, 100% RA PAIN 0/10. BS 92 NO COVERAGE NEEDED. CONTINUES TO RECEIVE K-RIDER AND IVF.
[2020-09-10] MEDS: VANCOMYCIN 500 MG in DEXTROSE 5% 100 ML IV SCH (18:55)
--- NOTE | 2020-09-10 19:07 | NUR ---
WOUND PICTURES OF ALL WOUNDS AND DOCUMENTATION DONE. SEE CHART PT COOPERATIVE IN [employer] AND ATE 100% OF DINNER
--- NOTE | 2020-09-10 19:25 | NUR ---
RECEIVED CONTINUITY AND REPORT FROM AM NURSE.
--- NOTE | 2020-09-10 19:46 | NUR ---
REPORT GIVEN TO HUMAN INTELLIGENCE RN FOR CONTINUITY OF CARE PT IS STABLE IN NO DISTRESS. RECEIVING VANCO IVPB.
--- NOTE | 2020-09-10 21:30 | NUR ---
UPON ASSESSMENT OF THE PT, FOUND THAT VANCO IV MEDICATION DID NOT INFUSE DOCUMENTED ON THE EMAR. NOTIFIED THE PHARMACY OF THE NON-INFUSED ISSUE. PHARMACY ADVISED THAT IT IT STILL OKAY TO ADMINISTERED VANCO IV AT THIS TIME. THE SECOND DOSE MAY CONTINUE SCHEDULED. UPON PHYSICAL ASSESSMENT, PT IS A/OX1, ABLE TO RESPOND TO QUESTIONS, HEAD IS ROUND, NORMOCEPHALIC, FACE IS UNIFORMED, SYMMETRICAL, ALIGNED EYEBROWS AND SMILE, PMMM, SCLERA WHITE, PERRL. TRACHEA IS PLACE IN THE MIDLINE OF THE NECK, NO JVD PRESENT. CHEST IS SYMMETRICAL, LUNGS ARE CTAX4, ON INSPIRATION AND EXPIRATION. S1, S2 HEART TONES NOTED. BOWEL TONES ARE ACTIVE IN FOUR QUADRANTS. ABD IS FLAT AND NONTENDER. SKIN IS SMOOTH, WARM, DRY, AND INTACT. NAILS ARE CLEAN, INTACT, CAP REFILL IS LESS THAN 3 SECONDS, NO CLUBBING OR CYANOSIS NOTED. EQUAL AND BILATERAL PEDAL PULSES NOTED. ADMINISTERED SCHEDULED MEDICATION. EDUCATION RENDERED. SAFETY PRECAUTIONS IN PLACE.
--- NOTE | 2020-09-10 23:24 | NUR ---
PT REPOSITIONED. NO SIGNS OF DISTRESS NOTED.
[2020-09-11] VITALS: BP 137/66
[2020-09-11] MEDS: GAUZE TP SCH ×3 (01:08→13:12)
[2020-09-11] MEDS: HYDRAGUARD CREAM TP SCH ×2 (01:09→13:12)
[2020-09-11] MEDS: HYDROcodone/APAP 7.5/325 MG 1 TAB PO PRN (01:14)
--- NOTE | 2020-09-11 01:14 | NUR ---
WOUND CARE DONE. EDUCATION RENDERED. PT REPOSITION. MEDICATED PT FOR PAIN. NO SIGNS OF DISTRESS AT THIS TIME.
--- NOTE | 2020-09-11 03:17 | NUR ---
PT IS SLEEPING. VISIBLE CHEST RISE NOTED.
[2020-09-11] MEDS: PIPERACILLIN/TAZOBACTAM 3.375 GM in DEXTROSE 5% 50 ML IV SCH ×3 (05:50→20:08)
--- NOTE | 2020-09-11 05:52 | NUR ---
PT IS SLEEPING. NO SIGNS OF DISTRESS NOTED.
[2020-09-11] MEDS: BLOOD GLUCOSE MONITORING 1 DEV DEV FS SCH ×4 (06:32→20:08)
[2020-09-11 06:34] LABS: BASOPHILS % (AUTO) 0.3 % (0.0-2.0); EOSINOPHILS # (AUTO) 0.1 K/uL (0-0.4); EOSINOPHILS % (AUTO) 1.2 % (0.0-4.0); HEMATOCRIT 28.8 % (36-48); HEMOGLOBIN 9.4 g/dL (12.0-16.0); LYMPHOCYTES # (AUTO) 1.4 K/uL (2.5-16.5); LYMPHOCYTES % (AUTO) 15.7 % (20.5-51.1); MEAN CORPUSCULAR HEMOGLOBIN 28 pg (27-31); MEAN CORPUSCULAR HGB CONC 33 g/dL (33-37); MONOCYTES # (AUTO) 0.5 K/uL (0.8-1.0); MONOCYTES % (AUTO) 5.7 % (1.7-9.3); NEUTROPHILS # (AUTO) 6.7 K/uL (1.8-7.7); NEUTROPHILS % (AUTO) 77.1 % (42.2-75.2); PLATELET COUNT (AUTO) 247 K/uL (140-450); RED BLOOD CELL COUNT(AUTO) 3.31 MIL/uL (4.20-5.40); RED CELL DISTRIBUTION WIDTH 14.5 % (11.6-13.7); WHITE BLOOD COUNT (AUTO) 8.7 K/uL (4.8-10.8)
[2020-09-11] MEDS: INSULIN LISPRO SLIDING SCALE 100 UNITS/ML VIAL SUBQ PRN ×3 (06:40→20:06)
--- NOTE | 2020-09-11 07:17 | NUR ---
RECEIVED REPORT FROM NIGHT NURSE. PATIENT IN BED AWAKE AND ALERT. ABLE TO ANSWER QUESTIONS. SPEECH IS SLOW BUT CLEAR. RESP EVEN AND UNLABORED ON ROOM AIR. RFA 20G INFUSING D5NS 60ML/HR. DENIES OF PAIN AT THIS TIME. PLAN OF CARE DISCUSSED WITH PATIENT. PATIENT VERBALIZED UNDERSTANDING. CALL LIGHT WITHIN REACH. WILL CONTINUE TO MONITOR.
[2020-09-11 07:57] LABS: ANION GAP 14.3 (8-16); CARBON DIOXIDE 24.1 mmol/L (21-32); CREATININE 0.6 mg/dL (0.6-1.3); POTASSIUM 3.4 mmol/L (3.5-5.1)
[2020-09-11 08:00] VITALS: BP 117/72
--- NOTE | 2020-09-11 10:37 | NUR ---
PATIENT IN BED RESTING AWAKE AND ALERT, ORIENTED X2. ABLE TO MAKE NEEDS KNOWN AND FOLLOWS COMMANDS. RESP EVEN AND UNLABORED ON ROOM AIR. DENIES OF PAIN AT THIS TIME. KDUR GIVEN FOR POTASSIUM REPLACEMENT. RH 20G INTACT AND PATENT AND INFUSING D5NS 60ML/HR. PLAN OF CARE DISCUSSED WITH PATIENT. PATIENT VERBALIZED UNDERSTANDING. CALL LIGHT WITHIN REACH. WILL CONTINUE TO MONITOR.
[2020-09-11] MEDS: VANCOMYCIN 500 MG in DEXTROSE 5% 100 ML IV SCH (11:34)
[2020-09-11] MEDS: ALGINATE DRESSING MC SCH (13:11)
--- NOTE | 2020-09-11 13:12 | NUR ---
PATIENT BEING ASSISTED WITH LUNCH TRAY BY ZOOLOGY PROFESSOR. PATIENT TOLERATED WELL. PATIENT AWAKE AND ALERT. ABLE TO VOICE NEEDS AND RESPONDING TO STAFF. DENIED OF PAIN. PATIENT IS COMFORTABLE AT THIS TIME. TURNED AND REPOSITIONED. WOUND TREATMENTS GIVEN. PLEASE SEE NOTES ON ASSESSMENT. PATIENT TOLERATED WELL. CALL LIGHT WITHIN REACH. WILL CONTINUE TO MONITOR.
[2020-09-11] MEDS: DEXT 5% /NACL 0.9% 1,000 ML IV SCH (13:39)
--- NOTE | 2020-09-11 15:09 | NUR ---
PATIENT AWAKE AND ALERT COMFORTABLE IN BED. WATCHING TV. DENIED OF PAIN AT THIS TIME. RESP EVEN AND UNLABORED. CALL LIGHT WITHIN REACH. WILL CONTINUE TO MONITOR.
[2020-09-11 16:00] VITALS: BP 131/73
--- NOTE | 2020-09-11 17:45 | NUR ---
BLOOD GLUCOSE 222, INSULIN COVERAGE PER SLIDING SCALE. PATIENT TURNED AND REPOSITIONED. PERSONAL CARE RENDERED. PATIENT TOLERATED WELL. WOUND DRESSING CHANGE PROVIDED NEEDED. HEEL PROTECTORS IN PLACE. PATIENT DENIED OF PAIN OR DISTRESS AT THIS TIME. SAFETY MEASURES IN PLACE. WILL CONTINUE TO MONITOR.
--- NOTE | 2020-09-11 19:20 | NUR ---
RECEIVED PT . AAOX1 - RESPONDING WHEN CALLING HER NAME , - HX CERBRAL PALSY . IV SITE INTACT AND PATENT . DENIES PAIN - POST DEBRIBEMENT OF DECUBITI WOUNDS . .SAFETY MEASURES IN PLACE - SIDE RAILS UP . PLAN OF CARE DISCUSSED BUT SHOWING FAIR UNDERSTANDING DUE TO MENTAL STATUS . WILL CONT. TO MONITOR
--- NOTE | 2020-09-11 19:20 | NUR ---
ENDORSED PATIENT TO NIGHT NURSE. PATIENT IN STABLE CONDITION.
--- NOTE | 2020-09-11 23:39 | NUR ---
MADE ROUNDS . NO S/SX OF ACUTE DISTRESS NOTED - WILL CONT. TO MONITOR
[2020-09-12] VITALS: BP 121/66
[2020-09-12] MEDS: DEXT 5% /NACL 0.9% 1,000 ML IV SCH ×2 (01:29→22:50)
[2020-09-12] MEDS: GAUZE TP SCH ×3 (01:33→13:55)
[2020-09-12] MEDS: HYDRAGUARD CREAM TP SCH ×2 (01:34→13:56)
--- NOTE | 2020-09-12 02:00 | NUR ---
SLEEPING - CHEST RISE AND FALL EQUALLY . WILL CONT. TO MONITOR
--- NOTE | 2020-09-12 04:00 | NUR ---
MADE ROUNDS , NO S/SX OF ACUTE DISTRESS NOTED AT THIS TIME . WILL CONT. TO MONITOR .
[2020-09-12] MEDS: PIPERACILLIN/TAZOBACTAM 3.375 GM in DEXTROSE 5% 50 ML IV SCH ×3 (04:31→20:47)
[2020-09-12] MEDS: VANCOMYCIN 500 MG in DEXTROSE 5% 100 ML IV SCH ×3 (06:00→23:20)
--- NOTE | 2020-09-12 06:00 | NUR ---
RESTING ON BED COMFORTABLY . WILL CONT. TO MONITOR . DENIES ANY PAIN .
[2020-09-12 06:50] LABS: CARBON DIOXIDE 24.6 mmol/L (21-32); CREATININE 0.6 mg/dL (0.6-1.3); POTASSIUM 3.6 mmol/L (3.5-5.1)
[2020-09-12 07:03] LABS: BASOPHILS # (AUTO) 0.1 K/uL (0.00-0.22); BASOPHILS % (AUTO) 0.5 % (0.0-2.0); EOSINOPHILS # (AUTO) 0.1 K/uL (0-0.4); EOSINOPHILS % (AUTO) 0.5 % (0.0-4.0); HEMOGLOBIN 9.8 g/dL (12.0-16.0); LYMPHOCYTES # (AUTO) 1.7 K/uL (2.5-16.5); LYMPHOCYTES % (AUTO) 13.7 % (20.5-51.1); MEAN CORPUSCULAR HEMOGLOBIN 28 pg (27-31); MEAN CORPUSCULAR HGB CONC 33 g/dL (33-37); MEAN CORPUSCULAR VOLUME 86.1 fL (80-94); MONOCYTES # (AUTO) 0.7 K/uL (0.8-1.0); MONOCYTES % (AUTO) 5.2 % (1.7-9.3); NEUTROPHILS % (AUTO) 80.1 % (42.2-75.2); PLATELET COUNT (AUTO) 318 K/uL (140-450); RED BLOOD CELL COUNT(AUTO) 3.49 MIL/uL (4.20-5.40); WHITE BLOOD COUNT (AUTO) 12.5 K/uL (4.8-10.8)
--- NOTE | 2020-09-12 07:16 | NUR ---
ENDORSED TO AM SHIFT - PT - STABLE - I TOLD TO AM SHIFT NURSE I DID NOT GIVE THE DUE 6AM VANCO - BECAUSE ON THAT TIME THE RESULT OF VANCO TROUGH IS STILL PENDING . I TOLD TO AM NURSE HE HAVE TO ADMINITER THE VANCO TIV ONCE THERE IS RESULT OF VANCO TROUGH - ENDORSED .
--- NOTE | 2020-09-12 07:16 | NUR ---
RECEIVED PATIENT FROM NIGHT NURSE. PATIENT IN BED AWAKE, EYE OPENING SPONTANEOUS, AND ALERT. RESP EVEN AND UNLABORED ON ROOM AIR. DENIED OF PAIN AT THIS TIME. RH 20G INFUSING WELL. PLAN OF CARE DISCUSSED WITH PATIENT. PATIENT VERBALIZED UNDERSTANDING. SAFETY MEASURES IN PLACE. CALL LIGHT WITHIN REACH. WILL CONTINUE TO MONITOR.
[2020-09-12] MEDS: BLOOD GLUCOSE MONITORING 1 DEV DEV FS SCH ×4 (07:41→20:47)
[2020-09-12 08:00] VITALS: BP 99/57
--- NOTE | 2020-09-12 08:47 | NUR ---
(09/12/20) RD FOLLOW UP COMPLETED PLEASE REFER TO NUTRITION PROGRESS NOTE UNDER CARE ACTIVITY FOR ESTIMATED NUTRITION NEEDS. RD RECOMMENDATIONS: 1. CONTINUE PUREED CCHO DIET TOLERATED. 2. CONTINUE LUCRECIA BID. 3. RECOMMEND D/C ENSURE 4. RECOMMEND GLUCERNA SHAKE 1 BOTTLE TID FOR BETTER BG CONTROL. (GLUCERNA SHAKES TID WITH PROVIDE A TOTAL OF 660 KCAL AND 30 GM PROTEIN). 4. CONTINUE TO PROVIDE ASSISTANCE WITH MEALS 5. RD TO FOLLOW-UP 2-3 DAYS, HIGH RISK ALEXX SOUZA MS, RDN
--- NOTE | 2020-09-12 09:24 | NUR ---
PATIENT IN BED RESTING AWAKE AND ALERT, ORIENTED X2. ABLE TO MAKE NEEDS KNOWN AND FOLLOWS COMMANDS. RESP EVEN AND UNLABORED ON ROOM AIR. DENIES OF PAIN AT THIS TIME. BILATERAL PROTECTIVE HEELS ON. PATIENT TURNED AND REPOSITIONED. RH 20G INTACT AND PATENT AND INFUSING D5NS 60ML/HR. PLAN OF CARE DISCUSSED WITH PATIENT. PATIENT VERBALIZED UNDERSTANDING. CALL LIGHT WITHIN REACH. WILL CONTINUE TO MONITOR.
[2020-09-12] MEDS: INSULIN LISPRO SLIDING SCALE 100 UNITS/ML VIAL SUBQ PRN ×3 (12:40→21:35)
--- NOTE | 2020-09-12 12:45 | NUR ---
BLOOD GLUCOSE 369. INSULIN GIVEN PER SLIDING SCALE. PATIENT ASSISTED WITH LUNCH TRAY BY CANDY DECORATOR. PATIENT TOLERATED WELL. FLUIDS GIVEN. DENIED OF PAIN AT THIS TIME. CALL LIGHT WITHIN REACH. WILL CONTINUE TO MONITOR.
--- NOTE | 2020-09-12 13:50 | NUR ---
WOUND CARE PROVIDED. PATIENT TOLERATED WELL. PATIENT TURNED AND REPOSITIONED. CALL LIGHT WITHIN REACH. WILL CONTINUE TO MONITOR.
[2020-09-12] MEDS: ALGINATE DRESSING MC SCH (13:55)
--- NOTE | 2020-09-12 14:15 | NUR ---
PATIENT IN BED SLEEPING. CHEST NOTED RISING. NO NOTED ACUTE S/S DISTRESS AT THIS TIME. CALL LIGHT WITHIN REACH. WILL CONTINUE TO MONITOR.
[2020-09-12 16:00] VITALS: BP 116/77
--- NOTE | 2020-09-12 17:45 | NUR ---
BLOOD GLUCOSE 296, INSULIN COVERAGE PROVIDED PER SLIDING SCALE. PATIENT WAS TURNED AND REPOSITIONED. PERSONAL CARE RENDERED PATIENT TOLERATED WELL. PATIENT DENIED PAIN AT THIS TIME. CALL LIGHT WITHIN REACH. WILL CONTINUE TO MONITOR.
--- NOTE | 2020-09-12 19:15 | NUR ---
ENDORSED PATIENT TO NIGHT NURSE. PATIENT IN STABLE CONDITION.
--- NOTE | 2020-09-12 19:25 | NUR ---
RECEIVED REPORT AND CONTINUITY OF CARE FROM AM NURSE.
--- NOTE | 2020-09-12 21:15 | NUR ---
UPON PHYSICAL ASSESSMENT, PT IS A/OX1, ABLE TO RESPOND TO QUESTIONS, HEAD IS ROUND, NORMOCEPHALIC, FACE IS UNIFORMED, SYMMETRICAL, ALIGNED EYEBROWS AND SMILE, PMMM, SCLERA WHITE, PERRL. TRACHEA IS PLACE IN THE MIDLINE OF THE NECK, NO JVD PRESENT. CHEST IS SYMMETRICAL, LUNGS ARE CTAX4, ON INSPIRATION AND EXPIRATION. S1, S2 HEART TONES NOTED. BOWEL TONES ARE ACTIVE IN FOUR QUADRANTS. ABD IS FLAT AND NONTENDER. SKIN IS SMOOTH, WARM, DRY, AND INTACT. NAILS ARE CLEAN, INTACT, CAP REFILL IS LESS THAN 3 SECONDS, NO CLUBBING OR CYANOSIS NOTED. EQUAL AND BILATERAL PEDAL PULSES NOTED. ADMINISTERED SCHEDULED MEDICATION. EDUCATION RENDERED. SAFETY PRECAUTIONS IN PLACE.
--- NOTE | 2020-09-12 23:15 | NUR ---
PT REPOSITIONED. NO SIGNS OF DISTRESS NOTED.
[2020-09-13] VITALS: BP 106/71
[2020-09-13] MEDS: GAUZE TP SCH ×3 (01:00→12:40)
[2020-09-13] MEDS: HYDRAGUARD CREAM TP SCH ×2 (01:00→12:40)
--- NOTE | 2020-09-13 01:15 | NUR ---
WOUND ASSESSMENT COMPLETE. PHOTOGRAPH DONE. ORAL CARE RENDERED. PT REPOSITIONED.
[2020-09-13] MEDS: HYDROcodone/APAP 7.5/325 MG 1 TAB PO PRN ×2 (01:35→18:22)
--- NOTE | 2020-09-13 04:49 | NUR ---
PT IS SLEEPING. NO SIGNS OF DISTRESS NOTED.
[2020-09-13] MEDS: PIPERACILLIN/TAZOBACTAM 3.375 GM in DEXTROSE 5% 50 ML IV SCH ×2 (04:55→21:07)
[2020-09-13 06:06] LABS: BASOPHILS # (AUTO) 0.1 K/uL (0.00-0.22); BASOPHILS % (AUTO) 0.8 % (0.0-2.0); EOSINOPHILS # (AUTO) 0.1 K/uL (0-0.4); EOSINOPHILS % (AUTO) 0.9 % (0.0-4.0); HEMATOCRIT 24.8 % (36-48); HEMOGLOBIN 8.5 g/dL (12.0-16.0); LYMPHOCYTES # (AUTO) 1.9 K/uL (2.5-16.5); LYMPHOCYTES % (AUTO) 20.9 % (20.5-51.1); MEAN CORPUSCULAR HEMOGLOBIN 30 pg (27-31); MEAN CORPUSCULAR HGB CONC 34 g/dL (33-37); MEAN CORPUSCULAR VOLUME 86.7 fL (80-94); MONOCYTES # (AUTO) 0.5 K/uL (0.8-1.0); MONOCYTES % (AUTO) 5.1 % (1.7-9.3); NEUTROPHILS # (AUTO) 6.6 K/uL (1.8-7.7); NEUTROPHILS % (AUTO) 72.3 % (42.2-75.2); PLATELET COUNT (AUTO) 245 K/uL (140-450); RED BLOOD CELL COUNT(AUTO) 2.87 MIL/uL (4.20-5.40); RED CELL DISTRIBUTION WIDTH 14.9 % (11.6-13.7); WHITE BLOOD COUNT (AUTO) 9.1 K/uL (4.8-10.8)
[2020-09-13 06:19] LABS: ANION GAP 10.5 (8-16); CARBON DIOXIDE 28.1 mmol/L (21-32); CREATININE 0.7 mg/dL (0.6-1.3); POTASSIUM 3.6 mmol/L (3.5-5.1)
[2020-09-13] MEDS: BLOOD GLUCOSE MONITORING 1 DEV DEV FS SCH ×4 (06:44→20:51)
[2020-09-13] MEDS: INSULIN LISPRO SLIDING SCALE 100 UNITS/ML VIAL SUBQ PRN ×4 (06:45→21:04)
--- NOTE | 2020-09-13 07:00 | NUR ---
RECEIVED REPORT FROM MASTER COOK NURSE PA-RN. PT RESTING IN BED. DISCUSSED PLAN OF CARE HOWEVER PT UNABLE TO VERBALIZED UNDERSTANDING. SKIN NON-INTACT PRESSURE ULCERS: LEFT HIP UN-STAGEABLE, SACRUM TO LEFT BUTTOCK STAGE 4, LEFT MEDIAL KNEE STAGE 2. INCONTINENT AND BEDBOUND WITH LIMITED MOVEMENT. FALL PRECAUTIONS IN PLACE. NO S/S OF RESPIRATORY DISTRESS OR DISCOMFORT NOTED AT THIS TIME. WILL CONTINUE TO MONITOR.
[2020-09-13 08:00] VITALS: BP 110/64
--- NOTE | 2020-09-13 09:00 | NUR ---
PT ATE ALL HER BREAKFAST AND TOLERATED WELL. FALL PRECAUTIONS IN PLACE. NO S/S OF RESPIRATORY DISTRESS OR DISCOMFORT NOTED AT THIS TIME. WILL CONTINUE TO MONITOR.
[2020-09-13] MEDS: VANCOMYCIN 750 MG in DEXTROSE 5% 250 ML IV SCH ×2 (11:06→23:53)
--- NOTE | 2020-09-13 11:06 | NUR ---
SCHEDULED MEDICATION VANCO GIVEN AND TOLERATED WELL. VANCO TROUGH 8.7 AND WAS INCREASED TO 750MG. PT TOLERATED WELL. FALL PRECAUTIONS IN PLACE. NO S/S OF RESPIRATORY DISTRESS OR DISCOMFORT NOTED AT THIS TIME. WILL CONTINUE TO MONITOR.
--- NOTE | 2020-09-13 11:30 | NUR ---
BLOOD GLUCOSE 353- WILL ADMINISTER INSULIN COVERAGE. FALL PRECAUTIONS IN PLACE. NO S/S OF RESPIRATORY DISTRESS OR DISCOMFORT NOTED AT THIS TIME. WILL CONTINUE TO MONITOR.
--- NOTE | 2020-09-13 12:00 | NUR ---
WOUND CARE NURSE CRESCENCIO AT BEDSIDE TO PERFORM WOUND CARE. PT TOLERATED WELL. FALL PRECAUTIONS IN PLACE. NO S/S OF RESPIRATORY DISTRESS OR DISCOMFORT NOTED AT THIS TIME. WILL CONTINUE TO MONITOR.
--- NOTE | 2020-09-13 12:22 | NUR ---
WOUND CARE RE-EVALUATION NOTE: WOUND ASSESSED TO S/P DEBRIDEMENT TO LEFT TROCHANTER AND SACRAL AND LEFT MEDIAL KNEE, NO DEBRIDEMENT DONE TO LEFT MEDIAL KNEE. LEFT MEDIAL HEEL NO OPEN ACTIVE WOUND. PEELING CALLUSES NOTICE. LIPS AND ORAL MEMBRANE DRYNESS IMPROVING. POC DISCUSSED WITH PRIMARY RN. -LEFT TROCHANTER PRESSURE INJURY UN-STAGEABLE 2X2CM 100% YELLOW THIN LAYER SOFT SLOUGH TISSUE, MOIST NO ODOR, AMERICO WOUND SKIN INTACT. WILL CHANGE TX TO HYDROCOLLOID DRESSING. -SACRUM EXTENDED TO LEFT BUTTOCK PRESSURE ULCER INJURY STAGE 4, 5X4X1.5CM WOUND BED IS 90 % GRANULATING TISSUE, 10 % YELLOW THIN LAYER SOFT SLOUGH, MODERATE AMOUNT SEROSANGUINEOUS DRAINAGE AND NO ODOR,UNDERMINING AROUND THE CLOCK WITH DEEPEST TO 12 OCLOCK 0.8CM,AMERICO WOUND SKIN INTACT, SURROUNDING REDNESS INDICATED FURTHER DAMAGE -PRESSURE ULCER INJURY STAGE 2 TO LEFT MEDIAL KNEE,3X2CM SUPERFICIAL DEPTH AREA IS CLEAN AND MOIST, AMERICO WOUND SKIN INTACT. AREA NOT RESPONDING TO ADAPTIC DRESSING, WILL CHANGE TX TO HYDROCOLLOID DRESSING. RECOMMENDATIONS: -CLEANSE LEFT TROCHANTER AND LEFT MEDIAL KNEE WITH NS, PAT DRY, APPLY HYDROCOLLOID DRESSING TODAY AND Q3DAYS AND PRN IF SOILING -PAINT WITH BETADINE SOLUTION LEFT FIRST DISTAL PHALANGES AND RIGHT FIRST METATARSAL BID AND LEAVE IT LOLA - CLEANSE SACRUM WITH WOUND CLEANSING SOLUTION AND APPLY SILVER ALGINATE COVER WITH COMPOSITE DRESSING QD AND PRN IF SOILING -RIGHT MEDIAL KNEE APPLY HYDRAGUARD BID AND OFFLOADING -APPLY FORM DRESSING TO LEFT MEDIAL HEEL CHANGE Q3 DAYS AND PRN IF SOILING -APPLY HEEL PROTECTORS TO BOTH HEELS AT ALL TIMES -OFFLOAD BILATERAL HEELS BY PLACING PILLOWS UNDER CALVES UNLESS OTHERWISE CONTRAINDICATED -PRESSURE REDISTRIBUTION SURFACE THERAPY -TURN AND REPOSITION Q2H, OFFLOAD SACRALCOCCYX AND BUTTOCKS BY TURNING RIGHT AND LEFT -CONTINUE TO FOLLOW RD RECOMMENDATIONS
--- NOTE | 2020-09-13 12:37 | NUR ---
INSULIN COVERAGE GIVEN AND TOLERATED WELL. LUNCH GIVEN AND TOLERATED WELL BUT BECOMING SLEEPY. ATE 80% OF MEAL. FALL PRECAUTIONS IN PLACE. NO S/S OF RESPIRATORY DISTRESS OR DISCOMFORT NOTED AT THIS TIME. WILL CONTINUE TO MONITOR.
[2020-09-13] MEDS: ALGINATE DRESSING MC SCH (12:40)
--- NOTE | 2020-09-13 12:40 | NUR ---
ASSISTED PT WITH FEEDING. NO PROBLEMS WITH SWALLOWING. INGESTED APPROXIMATELY 85% OF MEAL
[2020-09-13] MEDS ORDERED: FOAM DRESSING TP SCH (13:00)
--- NOTE | 2020-09-13 14:30 | NUR ---
PT RESTING IN BED ASLEEP. FALL PRECAUTIONS IN PLACE. NO S/S OF RESPIRATORY DISTRESS OR DISCOMFORT NOTED AT THIS TIME. WILL CONTINUE TO MONITOR.
[2020-09-13] MEDS: DEXT 5% /NACL 0.9% 1,000 ML IV SCH (15:30)
--- NOTE | 2020-09-13 16:25 | NUR ---
PERFORMED BLOOD GLUCOSE MONITOR CHECK. PT. RESTING, CALL LIGHT WITHIN REACH
--- NOTE | 2020-09-13 18:22 | NUR ---
COMMUNITY RELATIONS REP TOMAS FEEDING PT DINNER AND SEEMING UNCOMFORTABLE, MOANING AND RESTLESS. MEDICATED WITH NORCO AND TOLERATED WELL. WILL CONTINUE TO MONITOR.
--- NOTE | 2020-09-13 19:00 | NUR ---
ENDORSED PT CARE TO VARITYPE OPERATOR NURSE PA-RN FOR CONTINUITY OF CARE. PT STABLE AT THIS TIME.
--- NOTE | 2020-09-13 19:25 | NUR ---
RECEIVED REPORT AND CONTINUITY OF CARE FROM AM NURSE.
--- NOTE | 2020-09-13 23:15 | NUR ---
ADMINISTERED SCHEDULED MEDICATION. EDUCATION RENDERED. PT REPOSITION WITH SUPERVISOR DOPING AT BEDSIDE.
[2020-09-14] VITALS: BP 116/67
[2020-09-14] MEDS: GAUZE TP SCH ×3 (01:09→13:00)
[2020-09-14] MEDS: HYDRAGUARD CREAM TP SCH ×2 (01:10→13:00)
--- NOTE | 2020-09-14 01:15 | NUR ---
WOUND CARE COMPLETE. AMERICO CARE DONE. PT REPOSITIONED. NO SIGNS OF DISTRESS AT THIS TIME.
--- NOTE | 2020-09-14 05:02 | NUR ---
ADMINISTERED SCHEDULED MEDICATION. EDUCATION RENDERED. NO SIGNS OF DISTRESS NOTED.
[2020-09-14] MEDS: PIPERACILLIN/TAZOBACTAM 3.375 GM in DEXTROSE 5% 50 ML IV SCH ×3 (05:31→20:27)
[2020-09-14 06:05] LABS: BASOPHILS % (AUTO) 0.3 % (0.0-2.0); EOSINOPHILS % (AUTO) 0.7 % (0.0-4.0); HEMATOCRIT 23.6 % (36-48); HEMOGLOBIN 7.8 g/dL (12.0-16.0); LYMPHOCYTES # (AUTO) 1.4 K/uL (2.5-16.5); MEAN CORPUSCULAR HEMOGLOBIN 29 pg (27-31); MEAN CORPUSCULAR HGB CONC 33 g/dL (33-37); MEAN CORPUSCULAR VOLUME 86.7 fL (80-94); MONOCYTES # (AUTO) 0.5 K/uL (0.8-1.0); MONOCYTES % (AUTO) 6.7 % (1.7-9.3); NEUTROPHILS # (AUTO) 5.5 K/uL (1.8-7.7); NEUTROPHILS % (AUTO) 73.3 % (42.2-75.2); PLATELET COUNT (AUTO) 301 K/uL (140-450); RED BLOOD CELL COUNT(AUTO) 2.73 MIL/uL (4.20-5.40); RED CELL DISTRIBUTION WIDTH 14.6 % (11.6-13.7); WHITE BLOOD COUNT (AUTO) 7.5 K/uL (4.8-10.8)
[2020-09-14 06:25] LABS: ANION GAP 9.4 (8-16); CARBON DIOXIDE 28.9 mmol/L (21-32); CREATININE 0.5 mg/dL (0.6-1.3); POTASSIUM 3.3 mmol/L (3.5-5.1)
[2020-09-14] MEDS: BLOOD GLUCOSE MONITORING 1 DEV DEV FS SCH ×4 (06:45→20:33)
--- NOTE | 2020-09-14 07:15 | NUR ---
RECEIVED REPORT FROM ATTIC FANS MECHANIC RN FOR CONTINUITY OF CARE. PATIENT RESTING IN BED. AAO X 1-2. BEDREST. RESPIRATORY EVEN AND UNLABORED. RIGHT UPPER ARM PICC LINE NOTED, PATENT, INFUSING D5NS 60CC/HR. SKIN WARM AND DRY TO TOUCH. ABDOMEN SOFT AND NON TENDER. PLAN OF CARE DISCUSSED. SAFETY MEASURES IN PLACE, WILL CONTINUE TO MONITOR.
--- NOTE | 2020-09-14 07:48 | NUR ---
ENDORSED CARE TO AM NURSE. PT IS IN STABLE CONDITION.
[2020-09-14] MEDS: DEXT 5% /NACL 0.9% 1,000 ML IV SCH (08:10)
[2020-09-14] MEDS: VANCOMYCIN 750 MG in DEXTROSE 5% 250 ML IV SCH ×2 (11:12→22:58)
--- NOTE | 2020-09-14 11:25 | NUR ---
ASSISTED REAL ESTATE LOAN OFFICER TO CHANGE THE POSITION, WOUND CARE PERFORMED AT THE SACRAL WOUND. WOUND CULTURE OBTAINED. WILL SEND TO THE LAB. SAFETY MEASURES IN PLACE, WILL CONTINUE TO MONITOR.
[2020-09-14] MEDS ORDERED: POTASSIUM CHLORIDE 40 MEQ, LIDOCAINE MPF 1% 25 MG in NACL 0.9% 250 ML IV SCH (11:30)
[2020-09-14] MEDS: INSULIN LISPRO SLIDING SCALE 100 UNITS/ML VIAL SUBQ PRN ×3 (12:04→20:33)
--- NOTE | 2020-09-14 12:05 | NUR ---
6 UNITS OF HUMALOG ADMINISTERED FOR BLOOD GLUCOSE LEVEL 279, EDUCATION PROVIDED, PATIENT TOLERATED WELL. SAFETY MEASURES IN PLACE, WILL CONTINUE TO MONITOR.
--- NOTE | 2020-09-14 12:15 | NUR ---
PT IS WITH THE PATIENT PERFORMING INITIAL EVALUATION.
[2020-09-14] MEDS: ALGINATE DRESSING MC SCH (13:00)
--- NOTE | 2020-09-14 14:50 | NUR ---
K RIDER 40 MEQ WITH LIDOCAINE GIVEN FOR POTASSIUM LEVEL 3.3. EDUCATION PROVIDED. PATIENT TOLERATED WELL. CHEST X RAY DONE. SAFETY MEASURES IN PLACE, CALL LIGHT WITHIN REACH. NO ACUTE DISTRESS NOTED AT THIS TIME. WILL CONTINUE TO MONITOR.
--- NOTE | 2020-09-14 15:35 | NUR ---
09/14/20 RD INITIAL ASSESSMENT COMPLETED PLEASE REFER TO NUTRITION ASSESSMENT UNDER CARE ACTIVITY FOR ESTIMATED NUTRITIONAL NEEDS. 1. CONTINUE CCHO 60GM PUREE DIET TOLERATED 2. CONTINUE LUCRECIA BID AND GLUCERNA TID 3. PROVIDE ASSISTANCE WITH MEALS 4. RD TO FOLLOW-UP 3-5 DAYS, MODERATE RISK ORI JACKSON RD
--- NOTE | 2020-09-14 17:07 | NUR ---
ASSISTED ARTIFACTS CONSERVATOR TO CHANGE THE PATIENT. DRESSING AT SACRAL, LEFT HIP AND HIP SOILED. WOUND CARE PERFORMED FOLLOWING THE WOUND CARE ORDER. PATIENT TOLERATED WELL. REPOSITION THE PATIENT. PATIENT TOLERATED THE PROCEDURE WELL. SAFETY MEASURES IN PLACE, WILL CONTINUE TO MONITOR.
--- NOTE | 2020-09-14 17:16 | NUR ---
2 UNITS OF HUMALOG GIVEN FOR BLOOD GLUCOSE LEVEL 184, EDUCATION PROVIDED, PATIENT TOLERATED WELL. NO ACUTE DISTRESS NOTED. SAFETY MEASURES IN PLACE, WILL CONTINUE TO MONITOR.
--- NOTE | 2020-09-14 19:15 | NUR ---
RECEIVED BEDSIDE REPORT FROM DAY SHIFT NURSE. PATIENT IS AWAKE RESPIRATION EVEN UNLABORED ON ROOM AIR. NO DISTRESS NOTED. SKIN IS WARM AND DRY. MULTIPLE WOUNDS NOTED. DRESSING INTACT AND DRY. RIGHT UPPER ARM PICC LINE NOTED AND PATENT. PLAN OF CARE WAS DISCUSSED. ALL SAFETY MEASURES IN PLACE. BED IS AT LOW POSITION. CALL LIGHT WITHIN REACH. WILL CONTINUE TO MONITOR.
--- NOTE | 2020-09-14 19:32 | NUR ---
ENDORSES PATIENT TO DIRECTOR OF SPECIAL SERVICES RN FOR CONTINUITY OF CARE. PATIENT IN STABLE CONDITION.
--- NOTE | 2020-09-14 20:27 | NUR ---
ALL SCHEDULED MEDS WERE GIVEN PER ORDER. NO ASE NOTED. WILL CONTINUE TO MONITOR.
--- NOTE | 2020-09-14 21:18 | NUR ---
CLEANED PATIENT AND REPOSITIONED
[2020-09-15] VITALS: BP 125/72
--- NOTE | 2020-09-15 | NUR ---
REPOSITIONED. VITALS WERE TAKEN. PATIENT IN STABLE CONDITION. NO DISTRESS NOTED.
[2020-09-15] MEDS: DEXT 5% /NACL 0.9% 1,000 ML IV SCH ×2 (00:50→18:25)
[2020-09-15] MEDS: GAUZE TP SCH ×3 (01:05→13:00)
[2020-09-15] MEDS: HYDRAGUARD CREAM TP SCH ×2 (01:05→13:00)
--- NOTE | 2020-09-15 02:19 | NUR ---
CHECKED PATIENT. PATIENT SLEEPING RESPIRATION EVEN UNLABORED ON ROOM AIR. NO DISTRESS NOTED
--- NOTE | 2020-09-15 04:00 | NUR ---
CHANGED PATIENT. PROVIDED MORNING CARE
[2020-09-15] MEDS: PIPERACILLIN/TAZOBACTAM 3.375 GM in DEXTROSE 5% 50 ML IV SCH ×4 (05:11→20:51)
[2020-09-15 06:13] LABS: BASOPHILS % (AUTO) 0.5 % (0.0-2.0); EOSINOPHILS # (AUTO) 0.1 K/uL (0-0.4); EOSINOPHILS % (AUTO) 1.2 % (0.0-4.0); HEMATOCRIT 26.7 % (36-48); LYMPHOCYTES # (AUTO) 1.5 K/uL (2.5-16.5); LYMPHOCYTES % (AUTO) 23.7 % (20.5-51.1); MEAN CORPUSCULAR HEMOGLOBIN 29 pg (27-31); MEAN CORPUSCULAR HGB CONC 34 g/dL (33-37); MEAN CORPUSCULAR VOLUME 86.2 fL (80-94); MONOCYTES # (AUTO) 0.5 K/uL (0.8-1.0); MONOCYTES % (AUTO) 8.7 % (1.7-9.3); NEUTROPHILS # (AUTO) 4.1 K/uL (1.8-7.7); NEUTROPHILS % (AUTO) 65.9 % (42.2-75.2); PLATELET COUNT (AUTO) 379 K/uL (140-450); RED CELL DISTRIBUTION WIDTH 15.1 % (11.6-13.7); WHITE BLOOD COUNT (AUTO) 6.2 K/uL (4.8-10.8)
[2020-09-15 06:29] LABS: ANION GAP 12.1 (8-16); CARBON DIOXIDE 26.8 mmol/L (21-32); CREATININE 0.5 mg/dL (0.6-1.3); POTASSIUM 3.9 mmol/L (3.5-5.1)
[2020-09-15 06:34] LABS: MAGNESIUM 1.8 mg/dL (1.8-2.4); PHOSPHORUS 2.2 mg/dL (2.5-4.9)
[2020-09-15] MEDS: INSULIN LISPRO SLIDING SCALE 100 UNITS/ML VIAL SUBQ PRN ×4 (06:41→20:59)
[2020-09-15] MEDS: BLOOD GLUCOSE MONITORING 1 DEV DEV FS SCH ×4 (06:41→20:57)
--- NOTE | 2020-09-15 07:11 | NUR ---
ENDORSED PATIENT TO DAY SHIFT NURSE AT BEDSIDE FOR CONTINUITY OF CARE
--- NOTE | 2020-09-15 07:12 | NUR ---
RECEIVED PATIENT FROM CROWN BUFFER RN FOR CONTINUITY OF CARE. PATIENT RESTING IN BED WITH RIGHT LATERAL POSITION. RESPIRATORY EVEN AND UNLABORED IN RA. SKIN WARM AND DRY. WOUND DRESSING DRY AND INTACT. ABDOMEN SOFT, NON TENDER. IV INFUSING ORDERED. NO ACUTE DISTRESS NOTED. SAFETY MEASURES IN PLACE. WILL CONTINUE TO MONITOR.
--- NOTE | 2020-09-15 10:03 | NUR ---
CHANGED PATIENT'S BED. AM HYGIENE DONE WITH CLINICAL RESEARCH SCIENTIST. WOUND CARE PERFORMED. SACRAL WOUND WITH STAGE 4 PRESSURE ULCER. 5 X 4 X 1.5, WOUND BED IS 90 GRANULATING TISSUE, 10% YELLOW THIN LAYER SOFT SLOUGH, MODERATE AMOUNT SEROSANGUINEOUS DRAINAGE AND NO ODER, UNDERMINING AROUND THE CLOCK WITH DEEPEST TO 12 O'CLOCK 0.8CM. WOUND DRESSING CHANGED. WOUND AT LEFT HIP DRESSING INTACT. LEFT KNEE DRESSING INTACT. REINFORCED. HEEL PROTECTOR IN PLACE. PATIENT TOLERATED WELL. SAFETY MEASURES IN PLACE, HOB ELEVATED >30 DEGREE. WILL CONTINUE TO MONITOR.
--- NOTE | 2020-09-15 11:15 | NUR ---
PATIENT RESTING IN BED WITH NO ACUTE DISTRESS, SAFETY MEASURES IN PLACE, WILL CONTINUE TO MONITOR.
[2020-09-15] MEDS: VANCOMYCIN 750 MG in DEXTROSE 5% 250 ML IV SCH (11:40)
[2020-09-15] MEDS: ALGINATE DRESSING MC SCH (13:00)
--- NOTE | 2020-09-15 15:10 | NUR ---
PATIENT ASLEEP WITH RIGHT LATERAL POSITION. NO ACUTE DISTRESS NOTED. WILL CONTINUE TO MONITOR.
[2020-09-15 16:00] VITALS: BP 141/71
--- NOTE | 2020-09-15 17:13 | NUR ---
PATIENT RESTING IN BED, NO ACUTE DISTRESS NOTED. SAFETY MEASURES IN PLACE, WILL CONTINUE TO MONITOR.
--- NOTE | 2020-09-15 19:47 | NUR ---
ENDORSED PATIENT TO SPACE BUYER RN FOR CONTINUITY OF CARE.
--- NOTE | 2020-09-15 20:50 | NUR ---
RECEIVED PT FROM DAYSHIFT RN PT RESTING IN BED, PT HAS BOZENA PICC INFUSING D5 NS, PT IS ON RM AIR, PT DOES NOT RESPOND TO QUESTIONS BUT WILL LOOK AT RN, EYE OPENING SPONTANEOUS, PULSES PALPABLE UPPER AND LOWER EXTREMITIES, BOWEL SOUNDS ACTIVE, NO SIGNS OF DISTRESS VSS, SAFETY PROTOCOLS IN PLACE WILL CONTINUE TO MONITOR PT
[2020-09-15] MEDS: HYDROcodone/APAP 7.5/325 MG 1 TAB PO PRN (20:51)
[2020-09-15] MEDS ORDERED: CRUSHER, PILL MC ONE (20:57)
--- NOTE | 2020-09-15 21:39 | NUR ---
PT BLOOD SUGAR CHECKED INSULIN COVERAGE PROVIDED, PT MEDS GIVEN NO SIGNS OF DISTRESS WILL CONTINUE TO MONITOR PT
--- NOTE | 2020-09-15 23:13 | NUR ---
PATIENT IS ASLEEP AND IN NO DISTRESS. CALL LIGHT WITHIN REACH. SAFETY PRECAUTIONS IN PLACE.
[2020-09-15 23:30] VITALS: BP 150/76
[2020-09-16] VITALS: BP 105/53
[2020-09-16] MEDS: GAUZE TP SCH (01:07)
[2020-09-16] MEDS: HYDRAGUARD CREAM TP SCH (01:07)
--- NOTE | 2020-09-16 01:20 | NUR ---
INCONTINENT CARE RENDERED WITH DROP HAMMER OPERATOR HELPER AT BEDSIDE. CALL LIGHT WITHIN REACH.
--- NOTE | 2020-09-16 02:35 | NUR ---
Patient's Plan of Care was discussed and reviewed with CUSTOMER ACCOUNT REPRESENTATIVE: MARY DORADO
[2020-09-16] MEDS: PIPERACILLIN/TAZOBACTAM 3.375 GM in DEXTROSE 5% 50 ML IV SCH (04:05)
--- NOTE | 2020-09-16 05:00 | NUR ---
PT REPOSITIONED IN BED, WOUND CARE PROVIDED FOR PT, DRESSINGS CHANGED
[2020-09-16] MEDS: BLOOD GLUCOSE MONITORING 1 DEV DEV FS SCH ×2 (05:21→12:24)
[2020-09-16] MEDS: INSULIN LISPRO SLIDING SCALE 100 UNITS/ML VIAL SUBQ PRN ×2 (05:26→12:26)
[2020-09-16 06:39] LABS: BASOPHILS % (AUTO) 0.5 % (0.0-2.0); EOSINOPHILS # (AUTO) 0.1 K/uL (0-0.4); EOSINOPHILS % (AUTO) 1.5 % (0.0-4.0); HEMATOCRIT 23.6 % (36-48); HEMOGLOBIN 7.7 g/dL (12.0-16.0); LYMPHOCYTES # (AUTO) 1.6 K/uL (2.5-16.5); LYMPHOCYTES % (AUTO) 32.9 % (20.5-51.1); MEAN CORPUSCULAR HEMOGLOBIN 28 pg (27-31); MEAN CORPUSCULAR HGB CONC 33 g/dL (33-37); MEAN CORPUSCULAR VOLUME 86.9 fL (80-94); MONOCYTES # (AUTO) 0.6 K/uL (0.8-1.0); MONOCYTES % (AUTO) 11.3 % (1.7-9.3); NEUTROPHILS # (AUTO) 2.7 K/uL (1.8-7.7); NEUTROPHILS % (AUTO) 53.8 % (42.2-75.2); PLATELET COUNT (AUTO) 328 K/uL (140-450); RED BLOOD CELL COUNT(AUTO) 2.72 MIL/uL (4.20-5.40); RED CELL DISTRIBUTION WIDTH 15.5 % (11.6-13.7)
[2020-09-16 06:44] LABS: ANION GAP 11.2 (8-16); CARBON DIOXIDE 27.7 mmol/L (21-32); CREATININE 0.5 mg/dL (0.6-1.3); POTASSIUM 3.9 mmol/L (3.5-5.1)
[2020-09-16 06:48] LABS: MAGNESIUM 2.1 mg/dL (1.8-2.4); PHOSPHORUS 2.7 mg/dL (2.5-4.9)
--- NOTE | 2020-09-16 07:00 | NUR ---
RECEIVED REPORT FROM MARY BECERRA LVN. PT CAME FROM HOME. CC: BUTTOCK WOUND DX: CELLULITIS. HX: CEREBRAL PALSY, HTN. HYPERLIPIDEMIA, DM. NKA. PT IS A FULL CODE. IV: LT UPPER ARM PICC RUNNING D5 1/2 NS AT 60MLS. DEIT: PUREE WITH FEEDER, CRUSH MEDS AND MIX WITH APPLESAUCE. LAST BLOOD SUGAR 0630: 159, 2NITS COVERAGE GIVEN. WOUNDS: LT TROCHANTER: PRESSURE ULCER 2X2, SACRAL ULCER: 5X4X1.5, LT DISTAL PHALANGES: DM ULCER 0.5X0.5CM, LT HEDIAL HEEL: PRESSURE INJURY 2X1CM, RT METATARSAL: DM ULCER 1X1CM. PLAN: CONTINUE WOUND CARE, ANTIBIOTICS, DC TO SNF.
--- NOTE | 2020-09-16 07:05 | NUR ---
ENDORSED PATIENT TO AM SHIFT NURSE FOR CONTINUITY OF CARE.
[2020-09-16] MEDS ORDERED: HYDROCOLLOID DRESSING TP SCH ×2 (09:00)
--- NOTE | 2020-09-16 09:00 | NUR ---
NO 0900 MEDICATIONS TO PASS. PT IS RESTING IN BED. RESPIRATION ARE VISIBLE. RISE ANDS FALL OF CHEST. RESPIRATIONS ARE EVEN AND UNLABORED. VS STABLE.
[2020-09-16] MEDS ORDERED: PIPE1SOL IV (10:30)
--- NOTE | 2020-09-16 11:30 | NUR ---
CM CALLED, PT WILL BE DC TO [facility]. WELDING OPERATOR TIME WILL BE BETWEEN 1330- 1430.
--- NOTE | 2020-09-16 11:35 | NUR ---
BLOOD SUGAR IS 271, 6UNITS COVERAGE GIVEN.
--- NOTE | 2020-09-16 12:30 | NUR ---
CALLED [facility]. GAVE REPORT TO ALBAN.
[2020-09-16 13:05] VITALS: BP 109/82
--- NOTE | 2020-09-16 13:55 | NUR ---
PT WAS PICKED UP BY [facility]. FAMILY MEMBERS NOTIFIED.
== END 2020-09-16 13:55 | DRG 853 ==
LOC: MED 10:27 → MMU 14:29 → MTU 09-09 11:00
PROVIDERS: ADMIT Emergency Medicine; ATTEND Emergency Medicine
PROC: 0JBM0ZZ Excision of Left Upper Leg Subcutaneous Tissue and Fascia, Open Approach (ICD-10-PCS; principal; 2020-09-10)
PROC: 0JB90ZZ Excision of Buttock Subcutaneous Tissue and Fascia, Open Approach (ICD-10-PCS; 2020-09-10)
PROC: 02HV33Z Insertion of Infusion Device into Superior Vena Cava, Percutaneous Approach (ICD-10-PCS; 2020-09-13)
PROC: B548ZZA Ultrasonography of Superior Vena Cava, Guidance (ICD-10-PCS; 2020-09-13)
DX: A41.9 Sepsis, unspecified organism (principal); L89.324 Pressure ulcer of left buttock, stage 4; L89.214 Pressure ulcer of right hip, stage 4; E43 Unspecified severe protein-calorie malnutrition; N39.0 Urinary tract infection, site not specified; Z68.1 Body mass index [BMI] 19.9 or less, adult; E11.52 Type 2 diabetes mellitus with diabetic peripheral angiopathy with gangrene; I96 Gangrene, not elsewhere classified; L03.317 Cellulitis of buttock; M86.8X8 Other osteomyelitis, other site; E11.69 Type 2 diabetes mellitus with other specified complication; G80.9 Cerebral palsy, unspecified; Z20.828 Contact with and (suspected) exposure to other viral communicable diseases; E87.6 Hypokalemia; E83.52 Hypercalcemia; E83.39 Other disorders of phosphorus metabolism; F03.90 Unspecified dementia, unspecified severity, without behavioral disturbance, psychotic disturbance, mood disturbance, and anxiety; R13.10 Dysphagia, unspecified
CPT/HCPCS: 36415; 71045; 74018; 78315; 80048; 80053; 80202; 81001; 82948; 83036; 83605; 83735; 83880; 84100; 84436; 84439; 84443; 84479; 85025; 85610; 85730; 86140; 87040; 87070; 87075; 87081; 87205; 92610; 93005; 96361; 96365; 96366; 97110; 97161-GP; 99285; A4649; A9503; C1758; J1956; J2001; J2543; J3370; J3480; J7030; J7042; J7060; Q0092